=== PATIENT | female | born 1995 | race Caucasian/White ===

== ENCOUNTER 2016-04-19 15:14 | Emergency (ER) | payer OTHER ==
[~2016-04-19] VITALS: Ht 167.6 cm; Wt 63.5 kg
[2016-04-19 15:16] VITALS: TEMP 37; Ht 167.6 cm; Wt 63.5 kg
[2016-04-19] MEDS ORDERED: KETOROLAC TROMETHAMINE 30 MG/ML VIAL IV STA (15:37)
[2016-04-19] MEDS ORDERED: SODIUM CHLORIDE 0.9% 1000ML 1,000 ML IV STA (15:37)
[2016-04-19] MEDS ORDERED: TYLOTC500 PO (15:39)
[2016-04-19 16:04] LABS: HEMATOCRIT 43.3 % (37-47); MEAN CELL VOLUME 87.7 fL (80-100); MEAN CORPUSCULAR HGB CONC 35.3 g/dl (32-36); PLATELET COUNT 132 K/uL (130-400); RED BLOOD COUNT 4.94 M/uL (4.2-5.4); WHITE BLOOD COUNT 11.84 K/uL (4.8-10.8)
[2016-04-19 16:37] LABS: ANTI-STREP O SCR: 5YRS OR > POS IU/ml (<200 IU); ANTI-STREP O TITRE: 5YR OR > 800 IU/ml (<200 IU)
[2016-04-19 16:38] LABS: BASO ABS # 0.11 K/uL (0-0.2); BASOPHIL % 0.9 %; COMPLETE YES; LYMPH ABS # 2.26 K/uL (1.2-3.4); LYMPHOCYTE % 19.1 %; PLASMA CELL 2.6 %; VARIANT LYM ABS # 4.53 K/uL; VARIANT LYMPHOCYTE % 38.3 %
[2016-04-19 16:39] LABS: BUN/CREATININE RATIO 8.4 (10-20); CALCIUM 9.1 mg/dl (8.5-10.1); CREATININE 0.75 mg/dl (0.60-1.20); POTASSIUM 3.6 mmol/L (3.5-5.1)
--- NOTE | 2016-04-19 16:48 | DIAGNOSTIC IMAGING REPORT ---
CHEST 2 VIEWS ROUTINE HISTORY: Cough, upper abd pain COMPARISON: None. FINDINGS: No focal lung consolidations. The heart is normal in size. No pleural effusions. No pneumothorax. There is mild central peribronchial thickening. IMPRESSION: 1. No focal lung consolidations. 2. Mild central peribronchial thickening. This can be seen in the setting of reactive airways disease. Electronically signed by: Capo Sanchez M.D. 04/19/2016 4:46 PM Dictated Date/Time: 04/19/2016 4:44 PM
[2016-04-19] MEDS ORDERED: AMOX500C3 PO (17:27)
[2016-04-19 17:45] VITALS: BP 131/73; PULSE 96; O2SAT 98
--- NOTE | 2016-04-20 00:23 | EMERGENCY ROOM VISIT NOTE ---
History First contact with patient: 15:21 Chief Complaint: FLU LIKE SX Stated Complaint: FLU,BACK PAIN,NECK PAIN History of Present Illness The patient is a 21 year old female who presents to the Emergency Room with complaints of flulike symptoms, neck pain, back pain, fatigue, upper abdominal pain, sore throat, runny nose and congestion. The patient reports that she first got sick 7 days ago. 2 days later, she was seen at her PCPs office and tested positive for influenza. She was treated with Tamiflu, but was only able to keep one tablet down because of nausea. She stopped taking the Tamiflu. As a persistent symptoms, she was seen today at the [facility] urgent care center and was referred here for further workup. She did have a negative rapid strep test. The patient also reports that she had a rash on her face and torso last night. She has had no rash today. She denies any facial swelling, throat/ tongue swelling, shortness of breath or productive cough. The patient reports that she went to [place] last week for the [place]. She went with her father. Her father did have milder symptoms that only lasted a few days. The patient has not taken any medicine today for her aches and pains, and rates her discomfort a 9 out of 10. Review of Systems HEENT: Denies dizziness, visual problems, hearing loss, tinnitus. Denies difficulty swallowing or oral lesions. PULMONARY: Denies shortness of breath, sputum production or hemoptysis. CARDIOVASCULAR: Denies chest pain, palpitations, dyspnea on exertion, orthopnea or peripheral edema. GASTROINTESTINAL: Denies diarrhea, constipation, nausea or vomiting. Otherwise see history of present illness for current upper abdominal pain. GENITOURINARY: Denies dysuria, frequency, urgency or nocturia. NEUROLOGIC: Denies history of epilepsy, CVA, TIA or chronic headaches. MUSCULOSKELETAL: Denies history of joint tenderness/swelling. SKIN: Denies rashes or lesions. PSYCHIATRIC: Denies history of depression or mental illness. ENDOCRINE: Denies history of diabetes or thyroid disorders. Past Medical/Surgical History Medical Problems: (1) No significant past medical history Surgical Problems: (1) No history of previous surgery Family History Unremarkable Social History Smoking Status: Never Smoker Alcohol Use: occasionally Drug Use: none Occupation Status: [employer] student Current/Historical Medications Scheduled Amoxicillin (Amoxil), 500 MG PO TID Scheduled PRN Acetaminophen (Tylenol), 1,000 MG PO Q8 PRN for Pain or Fever Allergies Coded Allergies: Lobster (Verified Allergy, Intermediate, ANAPHYLAXIS, 04/19/16) Physical Exam Vital Signs Date Time Temp Pulse Resp B/P Pulse Ox O2 Delivery O2 Flow Rate FiO2 04/19/16 17:45 96 18 131/73 98 04/19/16 16:58 85 18 121/72 98 Room Air 04/19/16 15:16 37.0 101 18 105/90 95 Room Air Physical Exam CONSTITUTIONAL: Healthy and well nourished. Alert and oriented X 3 with positive affect. Patient does not appear acutely or toxic. HEENT: Normocephalic, atraumatic. Pupils equal, round and reactive. Patient has mild bulging of the TMs without air-fluid levels or purulent effusion. Mild rhinorrhea noted. OROPHARYNX: Mucous membranes are dry. Patient has mild posterior pharyngeal erythema without significant tonsillar hypertrophy or exudates. Erythema does extend across the soft palate. Negative trismus. No evidence for Aguila's angina, retropharyngeal abscess or angioedema. NECK: Full active range of motion without discomfort. No nuchal rigidity. LYMPHATICS: The patient has a few posterior cervical lymph nodes. No anterior cervical adenopathy appreciated. RESPIRATORY: Clear to auscultation bilaterally with no wheezing, crackles, rhonchi or stridor. CARDIOVASCULAR: Regular rate and rhythm with no murmurs, rubs or gallops. GASTROINTESTINAL: Bowel sounds present in all quadrants. Patient has generalized upper abdominal tenderness to palpation. No obvious hepatosplenomegaly. No rigidity, guarding or rebound. Negative CVA tenderness. MUSCULOSKELETAL: Full range of motion of all joints without discomfort. INTEGUMENTARY: No rash or other significant dermatologic conditions noted on today's exam. The mother did show me a picture of the rash that she had yesterday, which appeared as confluent areas of erythema. The appearance is that of a histamine type reaction. Patient reports that the rash was itchy. NEUROLOGIC: No focal neurologic deficits noted. Medical Decision & Procedures ER Provider Diagnostic Interpretation: My interpretation of a two-view chest x-ray does not show any consolidations, pneumothorax or cardiomegaly. Radiologist report is as follows: CHEST 2 VIEWS ROUTINE HISTORY: Cough, upper abd pain COMPARISON: None. FINDINGS: No focal lung consolidations. The heart is normal in size. No pleural effusions. No pneumothorax. There is mild central peribronchial thickening. IMPRESSION: 1. No focal lung consolidations. 2. Mild central peribronchial thickening. This can be seen in the setting of reactive airways disease. Laboratory Results 04/19/16 15:45 Red Blood Count 4.94, Mean Corpuscular Volume 87.7, Mean Corpuscular Hemoglobin 31.0, Mean Corpuscular Hemoglobin Concent 35.3, Mean Platelet Volume 10.0 04/19/16 15:45 Test 04/19/16 15:45 White Blood Count 11.84 K/uL (4.8-10.8) Red Blood Count 4.94 M/uL (4.2-5.4) Hemoglobin 15.3 g/dL (12.0-16.0) Hematocrit 43.3 % (37-47) Mean Corpuscular Volume 87.7 fL (80-100) Mean Corpuscular Hemoglobin 31.0 pg (25-34) Mean Corpuscular Hemoglobin Concent 35.3 g/dl (32-36) Platelet Count 132 K/uL (130-400) Mean Platelet Volume 10.0 fL (7.4-10.4) RDW Standard Deviation 45.1 fL (36.4-46.3) RDW Coefficient of Variation 14.0 % (11.5-14.5) Neutrophils % (Manual) 33.0 % Lymphocytes % (Manual) 19.1 % Variant Lymphocytes % (manual) 38.3 % Monocytes % (Manual) 6.1 % Basophils % (Manual) 0.9 % Neutrophils # (Manual) 3.91 K/uL (1.4-6.5) Total Absolute Neutrophils 3.91 K/uL (1.4-6.5) Lymphocytes # (Manual) 2.26 K/uL (1.2-3.4) Absolute Variant Lymphocytes 4.53 K/uL Total Absolute Lymphocytes 6.80 K/uL (1.2-3.4) Monocytes # (Manual) 0.72 K/uL (0.11-0.59) Basophils # (Manual) 0.11 K/uL (0-0.2) Plasma Cells % 2.6 % Erythrocyte Sedimentation Rate 31 mm/hr (0-21) Anion Gap 9.0 mmol/L (3-11) Est Creatinine Clear Calc Drug Dose 111.9 ml/min Estimated GFR () 133.0 Estimated GFR (Non- 114.7 BUN/Creatinine Ratio 8.4 (10-20) Calcium Level 9.1 mg/dl (8.5-10.1) Monoscreen NEG (NEG) Anti-Streptolysin O Antibody Screen POS IU/ml (<200 IU) Anti-Streptolysin O Antibody Titer 800 IU/ml (<200 IU) The above labs were reviewed. White count is mildly elevated at 11.84 with no left shift or bandemia. Sedimentation rate is 31. Partial renal profile was normal. [place] screen is negative. ASO is positive with a titer of 800. Medications Administered Medications (Trade) Dose Ordered Sig/Alicia Route Start Time Stop Time Status Last Admin Dose Admin Sodium Chloride (Nss 1000ml) 1,000 ml @ 999 mls/hr Q1H1M STAT IV 04/19/16 15:37 04/19/16 16:37 DC 04/19/16 15:50 999 MLS/HR Ketorolac Tromethamine (Toradol Inj) 30 mg NOW STAT IV 04/19/16 15:37 04/19/16 15:39 DC 04/19/16 15:49 30 MG Procedure 1. IV hydration: The patient received a liter normal saline bolus 2. IV medications: Toradol 30 mg IVP ED Course Patient history and physical exam were performed. Nurse's notes were reviewed. Vital signs were reviewed, showing that the patient is afebrile. O2 saturation is 95% on room air. Pulse rate was 101 bpm, and the patient is normotensive. I did suggest performing additional lab work given the patient's duration of symptoms. IV access was established, and labs were drawn. The patient was hydrated with normal saline, and received IV medications as discussed in the previous Procedure section. Review of labs shows a mild leukocytosis without left shift or bandemia. [place] screen is negative. ASO screen is positive with a titer of 800. A two-view chest x-ray does not show any evidence for consolidations or pneumonia. The patient was reassessed and reported feeling better with hydration and IV Toradol. She requested discharge home. At this point, I do feel that treatment with Pen-Vee K antibiotics is warranted given the patient's positive ASO titer. She also has posterior pharyngeal erythema. The patient was encouraged to rest and remain hydrated. I did encourage her to follow-up with [facility] in the next 3-5 days for reevaluation. Return to the emergency department for any significantly worsening symptoms. The patient and mother were happy with plan of care, and the patient denied any significant discomfort at the time of discharge. The case was also discussed with Dr. Flores, ED attending physician, who agrees with workup and plan of care. Medical Decision See previous section. Impression Primary Impression: Strep pharyngitis Additional Impression: Influenza Departure Information Prescriptions Amoxicillin (AMOXIL) 500 Mg Cap 500 MG PO TID for 10 Days, #30 CAP Prov: Johnny Manriquez PA 04/19/16 Referrals No Doctor, Assigned (PCP) Patient Instructions A Signature Page, My [facility] Problem Qualifiers
== END 2016-04-19 17:47 | disposition home or self-care (01) ==
LOC: C.EDB 15:15 → C.EDC 17:47
DX: J02.0 Streptococcal pharyngitis (principal)

== ENCOUNTER 2017-01-20 14:39 | Emergency (ER) | payer OTHER ==
[~2017-01-20] VITALS: Ht 165.1 cm; Wt 69.1 kg
[2017-01-20 14:46] VITALS: TEMP 37.1; Ht 165.1 cm; Wt 69.1 kg
--- NOTE | 2017-01-20 15:11 | EMERGENCY ROOM VISIT NOTE ---
History First contact with patient: 14:53 Chief Complaint: PELVIC PAIN Stated Complaint: PELVIC PAIN History of Present Illness The patient is a 21 year old female who presents to the Emergency Room with complaints of right lower quadrant abdominal pain intermittently over the last month. The patient had intercourse earlier today. She is sexually active with one partner. Immediately following intercourse, the pain became severe. She called her [facility]OMER PROFESSION[facility] doctor at home. She was advised to come to the emergency department for evaluation. The patient reports minimal vaginal bleeding. She denies any vaginal dryness. No reported fever or chills. She denies any discharge or foul odor. She denies any vomiting or diarrhea. Review of Systems 10 system review performed and negative unless noted in HPI or below Past Medical/Surgical History Medical Problems: (1) No significant past medical history Surgical Problems: (1) No history of previous surgery Family History History of diabetes Social History Smoking Status: Never Smoker Alcohol Use: occasionally Drug Use: none Occupation Status: [employer] student Current/Historical Medications Scheduled Ascorbic Acid (Vitamin C), 500 MG PO DAILY Control Pills ( Control Pills), 1 TAB PO DAILY Scheduled PRN Acetaminophen (Tylenol), 1,000 MG PO Q8 PRN for Pain or Fever Physical Exam Vital Signs Date Time Temp Pulse Resp B/P (MAP) Pulse Ox O2 Delivery O2 Flow Rate FiO2 01/20/17 17:12 66 18 111/64 99 Room Air 01/20/17 14:46 37.1 66 18 126/77 95 Room Air Physical Exam VITALS: Vitals are noted on the nurse's note and reviewed by myself. Vital signs stable. GENERAL: 21-year-old female, in no acute distress, nondiaphoretic, well- developed well-nourished. SKIN: The skin was without rashes, erythema, edema, or bruising. HEAD: Normocephalic atraumatic. MOUTH: Mucous membranes moist. Tonsils are not enlarged. Pharynx without erythema or exudate. Uvula midline. Airway patent. Tongue does not deviate. NECK: . No lymphadenopathy. Cervical spine is nontender. No JVD. HEART: Regular rate and rhythm without murmurs gallops or rubs. LUNGS: Clear to auscultation bilaterally without wheezes, rales or rhonchi. No accessory muscle use. ABDOMEN: Positive bowel sounds x 4.Soft, tenderness to palpation in the right lower quadrant, without organomegaly. No guarding or rebound tenderness. : External genitalia free of any lesions or masses. Speculum exam reveals a moderate amount of cream-colored discharge in the vaginal vault. The cervix is pink. No lesions are noted on the cervix. The os is closed. Bimanual exam reveals no cervical motion tenderness. No adnexal masses palpated. MUSCULOSKELETAL: No muscle atrophy, erythema, or edema noted. Strength 5/5 throughout. NEURO: Patient was alert and oriented to person place and time. Normal sensation to touch. No focal neurological deficits. Medical Decision & Procedures ER Provider Diagnostic Interpretation: vaginal US IMPRESSION: 1. There is a 3.6 cm cyst as well as a dominant follicle identified in the right ovary. There is no sonographic evidence of ovarian torsion at the time of examination. 2. A small volume of free fluid in the cul-de-sac is likely within physiologic limits. IMPRESSION: 1. There is a 3.6 cm cyst as well as a dominant follicle identified in the right ovary. There is no sonographic evidence of ovarian torsion at the time of examination. 2. A small volume of free fluid in the cul-de-sac is likely within physiologic limits. Laboratory Results 01/20/17 16:21 Red Blood Count 4.68, Mean Corpuscular Volume 89.3, Mean Corpuscular Hemoglobin 31.6, Mean Corpuscular Hemoglobin Concent 35.4, Mean Platelet Volume 9.3, Neutrophils (%) (Auto) 70.9, Lymphocytes (%) (Auto) 20.8, Monocytes (%) (Auto) 7.2, Eosinophils (%) (Auto) 0.7, Basophils (%) (Auto) 0.2, Neutrophils # (Auto) 5.74, Lymphocytes # (Auto) 1.69, Monocytes # (Auto) 0.58, Eosinophils # (Auto) 0.06, Basophils # (Auto) 0.02 01/20/17 16:21 Test 01/20/17 15:24 01/20/17 16:21 01/20/17 18:00 Urine Color YELLOW Urine Appearance CLEAR (CLEAR) Urine pH >= 9.0 (4.5-7.5) Urine Specific [place] 1.018 (1.000-1.030) Urine Protein TRACE (NEG) Urine Glucose (UA) NEG (NEG) Urine Ketones NEG (NEG) Urine Occult Blood NEG (NEG) Urine Nitrite NEG (NEG) Urine Bilirubin NEG (NEG) Urine Urobilinogen NEG (NEG) Urine Leukocyte Esterase SMALL (NEG) Urine WBC (Auto) 10-30 /hpf (0-5) Urine RBC (Auto) 0-4 /hpf (0-4) Urine Hyaline Casts (Auto) 1-5 /lpf (0-5) Urine Epithelial Cells (Auto) >30 /lpf (0-5) Urine Bacteria (Auto) 2+ (NEG) White Blood Count 8.11 K/uL (4.8-10.8) Red Blood Count 4.68 M/uL (4.2-5.4) Hemoglobin 14.8 g/dL (12.0-16.0) Hematocrit 41.8 % (37-47) Mean Corpuscular Volume 89.3 fL (80-100) Mean Corpuscular Hemoglobin 31.6 pg (25-34) Mean Corpuscular Hemoglobin Concent 35.4 g/dl (32-36) Platelet Count 229 K/uL (130-400) Mean Platelet Volume 9.3 fL (7.4-10.4) Neutrophils (%) (Auto) 70.9 % Lymphocytes (%) (Auto) 20.8 % Monocytes (%) (Auto) 7.2 % Eosinophils (%) (Auto) 0.7 % Basophils (%) (Auto) 0.2 % Neutrophils # (Auto) 5.74 K/uL (1.4-6.5) Lymphocytes # (Auto) 1.69 K/uL (1.2-3.4) Monocytes # (Auto) 0.58 K/uL (0.11-0.59) Eosinophils # (Auto) 0.06 K/uL (0-0.5) Basophils # (Auto) 0.02 K/uL (0-0.2) RDW Standard Deviation 42.4 fL (36.4-46.3) RDW Coefficient of Variation 13.0 % (11.5-14.5) Immature Granulocyte % (Auto) 0.2 % Immature Granulocyte # (Auto) 0.02 K/uL (0.00-0.02) Anion Gap 7.0 mmol/L (3-11) Est Creatinine Clear Calc Drug Dose 100.7 ml/min Estimated GFR () 111.1 Estimated GFR (Non- 95.9 BUN/Creatinine Ratio 11.5 (10-20) Calcium Level 8.7 mg/dl (8.5-10.1) Total Bilirubin 0.5 mg/dl (0.2-1) Aspartate Amino Transf (AST/SGOT) 17 U/L (15-37) Alanine Aminotransferase (ALT/SGPT) 16 U/L (12-78) Alkaline Phosphatase 70 U/L (45-117) Total Protein 6.9 gm/dl (6.4-8.2) Albumin 3.4 gm/dl (3.4-5.0) Globulin 3.5 gm/dl (2.5-4.0) Albumin/Globulin Ratio 1.0 (0.9-2) Lipase 191 U/L (73-393) Human Chorionic Gonadotropin, Qual NEG (NEG) ED Course Patient was seen and examined Vital signs including blood pressure were reviewed medications list was verified with patient Labs were obtained, and a saline lock was established The patient declined pain medication. I reviewed discharge instructions the patient. They voiced understanding and had no further questions. Medical Decision Differential diagnosis: Ovarian cysts, ovarian torsion, appendicitis, PID, kidney stone, diverticulitis This patient is a 21-year-old female that presents to emergency department with right lower abdominal pain for approximately 1 month. Exacerbating factors include intercourse. Ovarian cyst was fairly high on my list; therefore, I ordered a pelvic ultrasound. This is consistent with a 3.6 cm right-sided ovarian cyst. No signs of torsion noted. Vaginal exam did reveal a moderate amount of discharge. I opted to treat the patient with Rocephin and azithromycin. Her urinalysis is also consistent with the UTI. She was put on a course of Macrobid. The patient was given pelvic rest. She was instructed to call the [facility] on Monday morning for a follow-up appointment. She will return here with any new or worsening symptoms This chart was completed in part utilizing [employer] Speech Voice Recognition software. Attempts were made to minimize the grammatical errors, random word insertions, pronoun errors and incomplete sentences. Any formal questions or concerns about the content, text or information contained within the body of this dictation should be directly addressed to the provider for clarification. Medication Reconcilliation Current Medication List: was personally reviewed by me Blood Pressure Screening Patient's blood pressure: Normal blood pressure Impression Primary Impression: Ovarian cyst Additional Impression: UTI (urinary tract infection) Departure Information Dispostion Home / Self-Care Condition GOOD Prescriptions Nitrofurantoin Monohyd Macrocr (Macrobid) 100 Mg Cap 100 MG PO BID for 7 Days, #14 CAP Prov: Ashli Mccord PA-C 01/20/17 Referrals No Doctor, Assigned (PCP) Ashli Pennington M.D. Patient Instructions Cyst Ovarian About, My [facility] Additional Instructions You were evaluated in the emergency department with right-sided abdominal pain. This is likely stemming from a right-sided ovarian cyst. Please follow-up with [facility] as soon as possible. Call Monday morning for a follow-up appointment. Pelvic rest: Nothing in the vagina, no sexual activity, no tampons, etc.... Please finish the entire course of antibiotics. Please eat yogurt or take a probiotic daily while on this medication. Ibuprofen 800 mg and/or Tylenol 1000 mg every 8 hours for pain. You may also alternate these medications for more effective pain relief: Ibuprofen --4 HRS--> Tylenol --4 HRS--> ibuprofen --4 HRS--> Tylenol .... Please return to the emergency department with any new or worsening symptoms. Problem Qualifiers
[2017-01-20] MEDS ORDERED: BCPILLS PO (15:18)
[2017-01-20] MEDS ORDERED: ASCO500T3 PO (15:18)
[2017-01-20 15:35] LABS: URINE APPEARANCE CLEAR (CLEAR); URINE BILIRUBIN NEG (NEG); URINE COLOR YELLOW; URINE EPITHELIAL CELL AUTO >30 /lpf (0-5); URINE NITRITE NEG (NEG); URINE PH >= 9.0 (4.5-7.5); URINE SPECIFIC GRAVITY 1.018 (1.000-1.030); UROBILINOGEN NEG (NEG)
[2017-01-20 15:38] LABS: MANUAL MICROSCOPIC REQUIRED? NO; REVIEW REQ? NO
[2017-01-20 15:39] LABS: SULFASALICYLIC ACID POS (NEG)
[2017-01-20] MEDS ORDERED: TYLOTC500 PO (15:39)
[2017-01-20 16:32] LABS: BASO % 0.2 %; BASO ABS # 0.02 K/uL (0-0.2); COMPLETE YES; EOS % 0.7 %; HEMATOCRIT 41.8 % (37-47); IG% 0.2 %; LYMPH % 20.8 %; LYMPH ABS # 1.69 K/uL (1.2-3.4); MEAN CELL VOLUME 89.3 fL (80-100); MEAN CORPUSCULAR HEMOGLOBIN 31.6 pg (25-34); MEAN CORPUSCULAR HGB CONC 35.4 g/dl (32-36); MEAN PLATELET VOLUME 9.3 fL (7.4-10.4); MONO % 7.2 %; NEUT % 70.9 %; PLATELET COUNT 229 K/uL (130-400); RED BLOOD COUNT 4.68 M/uL (4.2-5.4); WHITE BLOOD COUNT 8.11 K/uL (4.8-10.8)
[2017-01-20 16:50] LABS: BUN/CREATININE RATIO 11.5 (10-20); CALCIUM 8.7 mg/dl (8.5-10.1); CREATININE 0.87 mg/dl (0.60-1.20); POTASSIUM 3.9 mmol/L (3.5-5.1)
[2017-01-20 16:55] LABS: PREG INTERNAL NEGATIVE QC NEG CLEAR BACKGROUND; PREG INTERNAL POSITIVE QC POS CONTROL LINE
--- NOTE | 2017-01-20 17:24 | DIAGNOSTIC IMAGING REPORT ---
ULTRASOUND OF THE PELVIS CLINICAL HISTORY: Right pelvic pain with intercourse. COMPARISON STUDY: No priors. TECHNIQUE: Real-time, grayscale, and color flow sonography of the pelvis is performed both transabdominally and endovaginally. Images are reviewed in the transverse and longitudinal planes. FINDINGS: Uterus: The uterus is normal in size and echotexture, measuring 7.2 x 3.1 x 4.3 cm. Endometrium: The endometrium is normal in appearance, and the endometrial stripe is normal in thickness measuring up to 0.5 cm. Ovaries: The ovaries are normal in size and morphology. The right ovary measures 5.2 x 3.1 x 3.5 cm and the left ovary measures 2.7 x 1.8 x 1.9 cm. There is a small and simple appearing right ovarian cyst measuring 3.6 cm. An additional dominant follicle in the right ovary measures 3.1 cm. Additional follicles are noted in the left ovary. Normal Doppler waveforms are shown within both ovaries. Pelvis: There is the small volume of free fluid in the cul-de-sac. No concerning adnexal lesion is seen. IMPRESSION: 1. There is a 3.6 cm cyst as well as a dominant follicle identified in the right ovary. There is no sonographic evidence of ovarian torsion at the time of examination. 2. A small volume of free fluid in the cul-de-sac is likely within physiologic limits. Electronically signed by: Michele Najera M.D. 01/20/2017 5:22 PM Dictated Date/Time: 01/20/2017 5:20 PM
[2017-01-20] MEDS ORDERED: NITR-5 PO (18:05)
[2017-01-20] MEDS ORDERED: CEFTRIAXONE SOD INJ 250 MG/ML VIAL IM ONE (18:15)
[2017-01-20] MEDS ORDERED: AZITHROMYCIN 250 MG TAB PO ONE (18:15)
[2017-01-20] MEDS: CEFTRIAXONE SOD INJ 250 MG in SYRINGE 0 ML IM SCH ×2 (18:45→18:46)
[2017-01-20 18:59] VITALS: BP 118/69; PULSE 75; O2SAT 98
--- NOTE | 2017-01-23 15:09 | Pharmacy Progress Note ---
ED Pharmacist Culture FollowUp Date of Service: Jan 23, 2017. Called patient regarding genital culture with Group B Strep and Haemophilus influenzae. Informed of positive result. Counseled that the bacteria isolated may be normal genital danielle, but that it may also represent infection. Counseled that antibiotics are not urgently required (as patient reported improvement in her condition) but that she should follow-up with outpatient OB/ [facility]. Patient acknowledged understanding. Case discussed with Dr. Johnson.
== END 2017-01-20 19:04 | disposition home or self-care (01) ==
LOC: C.EDB 14:41
DX: N83.201 Unspecified ovarian cyst, right side (principal); N39.0 Urinary tract infection, site not specified; Z79.3 Long term (current) use of hormonal contraceptives

== ENCOUNTER 2017-05-09 15:19 | Emergency (ER) | payer OTHER ==
[~2017-05-09] VITALS: Ht 165.1 cm; Wt 66.2 kg
[~2017-05-09 15:19] MED LIST: ASCO500T3 PO; BCPILLS PO; TYLOTC500 PO
[2017-05-09 15:36] VITALS: TEMP 36.8; Ht 165.1 cm; Wt 66.2 kg
--- NOTE | 2017-05-09 16:19 | EMERGENCY ROOM VISIT NOTE ---
History Report prepared by Marysol: Demian Shah Under the Supervision of: Dr. Michele Flores M.D. First contact with patient: 15:47 Chief Complaint: ABDOMINAL PAIN Stated Complaint: SEVERE ABD PAIN Nursing Triage Summary: Patient reports developing medial upper abdominal pain last night around 2200. The pain lasted about 1 hour and then dissipated. This morning, after waking, the patient noted that the pain came back. She has been having intermittent episodes of that pain throughout the day today. Patient reports that the pain is a burning cramp or a stabbing pain. Patient admits to nausea and decreased appetite today. History of Present Illness The patient is a 22 year old female who presents to the Emergency Room with complaints of intermittent epigastrium abdominal pain that began last night. She rates her pain a 2/10 in severity. At that time, the patient experienced a sudden onset stabbing/burning pain. She took Advil when the pain began which resolved it 1 hour later. However, this then occurred three other times this morning each lasting about 5 minutes. She presented to [facility] who then sent her to the Emergency Room for further work up and evaluation. She is currently nauseated but denies any vomiting. This has never happened to her before. She denies any fevers, chills, hematochezia, melena, abnormal urinary symptoms, abnormal vaginal bleeding, or vaginal discharge. She notes that she has a past medical history of suspected endometriosis and states that her pain feels different than her pain associated with that disorder. She is due to have a Laparoscopy in May. She denies any other past medical history. Source of History: patient Onset: last night Position: abdomen (epigastrium) Symptom Intensity: 2/10 Quality: burning, stabbing Timing: intermittent Associated Symptoms: + nausea, No fevers, No chills, No vomiting, No melena , No hematochezia, No diarrhea, No urinary symptoms Note: She denies any abnormal vaginal bleeding or discharge. Review of Systems See HPI for pertinent positives & negatives. A total of 10 systems reviewed and were otherwise negative. Past Medical & Surgical Medical Problems: (1) No significant past medical history Surgical Problems: (1) No history of previous surgery Family History Patient reports no known family medical history. Social History Smoking Status: Never Smoker Smokeless Tobacco Use: No Alcohol Use: occasionally Drug Use: none Occupation Status: [employer] student Current/Historical Medications Scheduled Control Pills ( Control Pills), 1 TAB PO DAILY Allergies Coded Allergies: Amoxicillin (Verified Allergy, Intermediate, Rash/Hives, 05/09/17) Lobster (Verified Allergy, Intermediate, ANAPHYLAXIS, 05/09/17) Miconazole (Unverified Allergy, Unknown, INFLAMMATION, 05/09/17) Physical Exam Vital Signs Date Time Temp Pulse Resp B/P (MAP) Pulse Ox O2 Delivery O2 Flow Rate FiO2 05/09/17 17:30 78 18 125/84 98 Room Air 05/09/17 15:36 36.8 80 20 129/65 99 Room Air Physical Exam GENERAL: Patient is in no acute distress. HEENT: No acute trauma, normocephalic atraumatic, mucous membranes moist, no nasal congestion, no scleral icterus. NECK: No stridor, no adenopathy, no meningismus, trachea is midline. LUNGS: Clear to auscultation bilaterally, no wheeze, no rhonchi, breath sounds equal. HEART: Without murmurs gallops or rubs, regular rate and rhythm. ABDOMEN: Soft, moderately tender to the epigastrium and RUQ, bowel sounds positive, no hernias, no peritonitis. EXTREMITIES: No cyanosis or edema, full range of motion of all the joints without pain or difficulty, no signs for acute trauma. NEUROLOGIC: Oriented x 3, no acute motor or sensory deficits, no focal weakness. SKIN: No rash, no jaundice, no diaphoresis. Medical Decision & Procedures ER Provider Diagnostic Interpretation: Radiology results as stated below per my review and radiologist interpretation: ABDOMEN 2VIEW W/PA CHEST RTN CLINICAL HISTORY: Abdominal pain, nausea, vomiting. COMPARISON STUDY: Chest x-ray dated 04/19/2016 FINDINGS: The erect chest reveals no evidence of free air. There is no evidence of focal pulmonary consolidation.] Erect and supine views of the abdomen reveal no abnormally dilated loops of large or small bowel. There are no transition zone to indicate bowel obstruction. IMPRESSION: No evidence of bowel obstruction. No evidence of free air. Electronically signed by: Erasmo Romo M.D. 05/09/2017 5:20 PM Dictated Date/Time: 05/09/2017 5:19 PM Gallbladder ultrasound: IMPRESSION: Unremarkable sonographic assessment of the right upper quadrant. No gallstones are identified Laboratory Results 05/09/17 15:54 Red Blood Count 4.66, Mean Corpuscular Volume 91.4, Mean Corpuscular Hemoglobin 31.3, Mean Corpuscular Hemoglobin Concent 34.3, Mean Platelet Volume 9.6, Neutrophils (%) (Auto) 63.7, Lymphocytes (%) (Auto) 27.7, Monocytes (%) (Auto) 7.0, Eosinophils (%) (Auto) 1.0, Basophils (%) (Auto) 0.3, Neutrophils # (Auto) 4.44, Lymphocytes # (Auto) 1.93, Monocytes # (Auto) 0.49, Eosinophils # (Auto) 0.07, Basophils # (Auto) 0.02 05/09/17 15:54 Test 05/09/17 15:50 05/09/17 15:54 Urine Color YELLOW Urine Appearance TURBID (CLEAR) Urine pH 8.0 (4.5-7.5) Urine Specific [place] 1.019 (1.000-1.030) Urine Protein NEG (NEG) Urine Glucose (UA) NEG (NEG) Urine Ketones NEG (NEG) Urine Occult Blood NEG (NEG) Urine Nitrite NEG (NEG) Urine Bilirubin NEG (NEG) Urine Urobilinogen NEG (NEG) Urine Leukocyte Esterase TRACE (NEG) Urine WBC (Auto) 1-5 /hpf (0-5) Urine RBC (Auto) 0-4 /hpf (0-4) Urine Hyaline Casts (Auto) 1-5 /lpf (0-5) Urine Epithelial Cells (Auto) >30 /lpf (0-5) Urine Bacteria (Auto) 1+ (NEG) Urine Test NEG (NEG) White Blood Count 6.97 K/uL (4.8-10.8) Red Blood Count 4.66 M/uL (4.2-5.4) Hemoglobin 14.6 g/dL (12.0-16.0) Hematocrit 42.6 % (37-47) Mean Corpuscular Volume 91.4 fL (80-100) Mean Corpuscular Hemoglobin 31.3 pg (25-34) Mean Corpuscular Hemoglobin Concent 34.3 g/dl (32-36) Platelet Count 279 K/uL (130-400) Mean Platelet Volume 9.6 fL (7.4-10.4) Neutrophils (%) (Auto) 63.7 % Lymphocytes (%) (Auto) 27.7 % Monocytes (%) (Auto) 7.0 % Eosinophils (%) (Auto) 1.0 % Basophils (%) (Auto) 0.3 % Neutrophils # (Auto) 4.44 K/uL (1.4-6.5) Lymphocytes # (Auto) 1.93 K/uL (1.2-3.4) Monocytes # (Auto) 0.49 K/uL (0.11-0.59) Eosinophils # (Auto) 0.07 K/uL (0-0.5) Basophils # (Auto) 0.02 K/uL (0-0.2) RDW Standard Deviation 44.4 fL (36.4-46.3) RDW Coefficient of Variation 13.6 % (11.5-14.5) Immature Granulocyte % (Auto) 0.3 % Immature Granulocyte # (Auto) 0.02 K/uL (0.00-0.02) Anion Gap 8.0 mmol/L (3-11) Est Creatinine Clear Calc Drug Dose 80.9 ml/min Estimated GFR () 94.4 Estimated GFR (Non- 81.5 BUN/Creatinine Ratio 12.6 (10-20) Calcium Level 8.9 mg/dl (8.5-10.1) Total Bilirubin 0.5 mg/dl (0.2-1) Aspartate Amino Transf (AST/SGOT) 24 U/L (15-37) Alanine Aminotransferase (ALT/SGPT) 19 U/L (12-78) Alkaline Phosphatase 62 U/L (45-117) Total Protein 7.3 gm/dl (6.4-8.2) Albumin 3.6 gm/dl (3.4-5.0) Globulin 3.7 gm/dl (2.5-4.0) Albumin/Globulin Ratio 1.0 (0.9-2) Lipase 227 U/L (73-393) Laboratory results reviewed by me. Medications Administered Medications (Trade) Dose Ordered Sig/Alicia Route Start Time Stop Time Status Last Admin Dose Admin Miscellaneous Medication (Gi Cocktail) 24 ml NOW ONCE PO 05/09/17 16:30 05/09/17 16:31 DC 05/09/17 16:40 24 ML Al Hydroxide/Mg Hydroxide (Maalox Susp) 30 ml STK-MED ONCE .ROUTE 05/09/17 16:37 05/09/17 16:38 DC 05/09/17 16:39 30 ML Lidocaine HCl (Viscous Lidocaine 2% Soln) 20 ml STK-MED ONCE .ROUTE 05/09/17 16:37 05/09/17 16:38 DC 05/09/17 16:40 20 ML ED Course 1547: The patient was evaluated in room B8. A complete history and physical exam was performed. 1630: Ordered Gi Cocktail 24 ml PO Medical Decision Differential diagnosis includes but is not limited to reflux, gastritis, ulcer, pancreatitis, biliary colic, constipation, bowel perforation, and musculoskeletal pain. There is no leukocytosis or concerning anemia. No significant electrolyte abnormality or kidney failure. There is no hepatitis or pancreatitis. Urinalysis does not show infection or significant hematuria. testing is negative. Obstruction series does show some stool in the colon, no bowel obstruction, free air or pneumonia. Gallbladder ultrasound was unremarkable. On exam, the patient was not toxic or febrile. There was no peritonitis. The patient received a GI cocktail, she is resting comfortably. The patient presents with epigastric abdominal pain. Her workup here is benign and reassuring. Given the excessive stool in the colon, I do think starting her on some Senokot would be reasonable, the constipation may be part of her discomfort. Reflux or gastritis is also a possibility so starting antacids is reasonable. The patient will be discharged with outpatient follow-up and possibly a GI referral if symptoms are persisting. Certainly, if things are worsening, she can return for reassessment. At this point, no findings suggest appendicitis. Medication Reconcilliation Current Medication List: was personally reviewed by me Blood Pressure Screening Patient's blood pressure: Normal blood pressure Blood pressure disposition: Did not require urgent referral Impression Primary Impression: Epigastric abdominal pain Scribe Attestation The scribe's documentation has been prepared under my direction and personally reviewed by me in its entirety. I confirm that the note above accurately reflects all work, treatment, procedures, and medical decision making performed by me. Departure Information Dispostion Home / Self-Care Referrals No Doctor, Assigned (PCP) Patient Instructions My [facility]
[2017-05-09] MEDS ORDERED: GI COCKTAIL PO ONE (16:30)
[2017-05-09] MEDS ORDERED: ALUMINUM/MAGNESIUM SUSP 30 ML UDC ONE (16:37)
[2017-05-09] MEDS ORDERED: LIDOCAINE HCL 2% VISC SOLN 20 ML UDC ONE (16:37)
[2017-05-09 16:42] LABS: BASO % 0.3 %; BASO ABS # 0.02 K/uL (0-0.2); EOS ABS # 0.07 K/uL (0-0.5); HEMATOCRIT 42.6 % (37-47); HEMOGLOBIN 14.6 g/dL (12.0-16.0); IG# 0.02 K/uL (0.00-0.02); LYMPH % 27.7 %; LYMPH ABS # 1.93 K/uL (1.2-3.4); MEAN CELL VOLUME 91.4 fL (80-100); MEAN CORPUSCULAR HEMOGLOBIN 31.3 pg (25-34); MEAN CORPUSCULAR HGB CONC 34.3 g/dl (32-36); MEAN PLATELET VOLUME 9.6 fL (7.4-10.4); MONO ABS # 0.49 K/uL (0.11-0.59); NEUT % 63.7 %; NEUT ABS # 4.44 K/uL (1.4-6.5); PLATELET COUNT 279 K/uL (130-400); RED CELL DISTRIBUTION WIDTH CV 13.6 % (11.5-14.5); RED CELL DISTRIBUTION WIDTH SD 44.4 fL (36.4-46.3); WHITE BLOOD COUNT 6.97 K/uL (4.8-10.8)
--- NOTE | 2017-05-09 16:45 | EMERGENCY ROOM VISIT NOTE ---
History First contact with patient: 15:49 Chief Complaint: ABDOMINAL PAIN Stated Complaint: SEVERE ABD PAIN Nursing Triage Summary: Patient reports developing medial upper abdominal pain last night around 2200. The pain lasted about 1 hour and then dissipated. This morning, after waking, the patient noted that the pain came back. She has been having intermittent episodes of that pain throughout the day today. Patient reports that the pain is a burning cramp or a stabbing pain. Patient admits to nausea and decreased appetite today. History of Present Illness The patient is a 22 year old female who presents to the Emergency Room with complaints of epigastric pain. Pain started last night around 10 pm. Pain was described as stabbing/burning quality, 9/10 intensity, lasting approximately 1 hr. She tool Advil overnight and pain eventually resolved. Pain recurred 3 times as of this morning typically lasting around 5 minutes. She also reports, associated nausea. She reports no aggravating factors, no meal association. She denies fevers, chills, diarrhea, constipation, blood in stool, urinary symptom. She went to [facility] today and was told to go to Emergency dept for further evaluation. Patient denies any previous similar pain. She does have a history of suspected endometriosis and is scheduled for Laporoscopy on May 19 to confirm. She reportedly distinguishes between her typical LLQ pain endometriosis pain from current symptoms. Her LMP was 2 wks ago. NO vaginal discharge, some vaginal spotting in between periods which is typical for her. No h/o STI's. No Surgical history Review of Systems Pt denies headache, change in vision, fevers, chest pain, shortness of breath, vomiting, diarrhea, pain with urination, and melena. Past Medical/Surgical History Medical Problems: (1) No significant past medical history Surgical Problems: (1) No history of previous surgery Family History Patient reports no known family medical history. Social History Smoking Status: Never Smoker Smokeless Tobacco Use: No Alcohol Use: occasionally Drug Use: none Occupation Status: [employer] student Current/Historical Medications Scheduled Control Pills ( Control Pills), 1 TAB PO DAILY Omeprazole (Prilosec), 20 MG PO DAILY Ranitidine (Zantac), 150 MG PO BID Sennosides-Docusate Sodium (Senokot S), 1 TAB PO BID Physical Exam Vital Signs Date Time Temp Pulse Resp B/P (MAP) Pulse Ox O2 Delivery O2 Flow Rate FiO2 05/09/17 18:35 80 18 108/68 100 Room Air 05/09/17 17:30 78 18 125/84 98 Room Air 05/09/17 15:36 36.8 80 20 129/65 99 Room Air Physical Exam GENERAL: alert, no distress, non-toxic EYE EXAM: normal conjunctiva, PERRL and EOM's grossly intact OROPHARYNX: no exudate, no erythema, lips, buccal mucosa, and tongue normal and mucous membranes are moist NECK: supple, no nuchal rigidity, no adenopathy, non-tender LUNGS: Clear to auscultation. Normal chest wall mechanics HEART: no murmurs, S1 normal and S2 normal ABDOMEN: soft,Tenderness to palpation, epigastrium, normo-active bowel sounds, no masses, no rebound or guarding. NEURO EXAM: Normal sensorium, cranial nerves II-XII grossly intact, normal speech Medical Decision & Procedures ER Provider Diagnostic Interpretation: ABDOMEN 2VIEW W/PA CHEST RTN CLINICAL HISTORY: Abdominal pain, nausea, vomiting. COMPARISON STUDY: Chest x-ray dated 04/19/2016 FINDINGS: The erect chest reveals no evidence of free air. There is no evidence of focal pulmonary consolidation.] Erect and supine views of the abdomen reveal no abnormally dilated loops of large or small bowel. There are no transition zone to indicate bowel obstruction. IMPRESSION: No evidence of bowel obstruction. No evidence of free air. ULTRASOUND RIGHT UPPER QUADRANT ABDOMEN CLINICAL HISTORY: Epigastric and right upper quadrant abdominal pain. COMPARISON STUDY: Abdominal radiographs dated 05/09/2017. TECHNIQUE: Real-time, grayscale, and color flow sonography of the right upper quadrant of the abdomen was performed. Images are reviewed in the transverse and longitudinal planes. FINDINGS: Liver: The liver is normal in size and echotexture. There is no intrahepatic biliary ductal dilatation. The main portal vein is patent. Gallbladder: The gallbladder is contracted and otherwise normal in appearance. No gallstones are identified. There is no gallbladder wall thickening or pericholecystic fluid. A sonographic Cote's sign is reportedly absent. The common bile duct measures up to 0.5 cm in diameter. Pancreas: Visualized portions of the pancreatic head and body are normal in appearance. The splenic vein is patent. Right kidney: Survey images of the right kidney demonstrate normal size and echotexture. There is no hydronephrosis. Ascites: None. IMPRESSION: Unremarkable sonographic assessment of the right upper quadrant. No gallstones are identified. Laboratory Results 05/09/17 15:54 Red Blood Count 4.66, Mean Corpuscular Volume 91.4, Mean Corpuscular Hemoglobin 31.3, Mean Corpuscular Hemoglobin Concent 34.3, Mean Platelet Volume 9.6, Neutrophils (%) (Auto) 63.7, Lymphocytes (%) (Auto) 27.7, Monocytes (%) (Auto) 7.0, Eosinophils (%) (Auto) 1.0, Basophils (%) (Auto) 0.3, Neutrophils # (Auto) 4.44, Lymphocytes # (Auto) 1.93, Monocytes # (Auto) 0.49, Eosinophils # (Auto) 0.07, Basophils # (Auto) 0.02 05/09/17 15:54 Test 05/09/17 15:50 05/09/17 15:54 Urine Color YELLOW Urine Appearance TURBID (CLEAR) Urine pH 8.0 (4.5-7.5) Urine Specific [place] 1.019 (1.000-1.030) Urine Protein NEG (NEG) Urine Glucose (UA) NEG (NEG) Urine Ketones NEG (NEG) Urine Occult Blood NEG (NEG) Urine Nitrite NEG (NEG) Urine Bilirubin NEG (NEG) Urine Urobilinogen NEG (NEG) Urine Leukocyte Esterase TRACE (NEG) Urine WBC (Auto) 1-5 /hpf (0-5) Urine RBC (Auto) 0-4 /hpf (0-4) Urine Hyaline Casts (Auto) 1-5 /lpf (0-5) Urine Epithelial Cells (Auto) >30 /lpf (0-5) Urine Bacteria (Auto) 1+ (NEG) Urine Test NEG (NEG) White Blood Count 6.97 K/uL (4.8-10.8) Red Blood Count 4.66 M/uL (4.2-5.4) Hemoglobin 14.6 g/dL (12.0-16.0) Hematocrit 42.6 % (37-47) Mean Corpuscular Volume 91.4 fL (80-100) Mean Corpuscular Hemoglobin 31.3 pg (25-34) Mean Corpuscular Hemoglobin Concent 34.3 g/dl (32-36) Platelet Count 279 K/uL (130-400) Mean Platelet Volume 9.6 fL (7.4-10.4) Neutrophils (%) (Auto) 63.7 % Lymphocytes (%) (Auto) 27.7 % Monocytes (%) (Auto) 7.0 % Eosinophils (%) (Auto) 1.0 % Basophils (%) (Auto) 0.3 % Neutrophils # (Auto) 4.44 K/uL (1.4-6.5) Lymphocytes # (Auto) 1.93 K/uL (1.2-3.4) Monocytes # (Auto) 0.49 K/uL (0.11-0.59) Eosinophils # (Auto) 0.07 K/uL (0-0.5) Basophils # (Auto) 0.02 K/uL (0-0.2) RDW Standard Deviation 44.4 fL (36.4-46.3) RDW Coefficient of Variation 13.6 % (11.5-14.5) Immature Granulocyte % (Auto) 0.3 % Immature Granulocyte # (Auto) 0.02 K/uL (0.00-0.02) Anion Gap 8.0 mmol/L (3-11) Est Creatinine Clear Calc Drug Dose 80.9 ml/min Estimated GFR () 94.4 Estimated GFR (Non- 81.5 BUN/Creatinine Ratio 12.6 (10-20) Calcium Level 8.9 mg/dl (8.5-10.1) Total Bilirubin 0.5 mg/dl (0.2-1) Aspartate Amino Transf (AST/SGOT) 24 U/L (15-37) Alanine Aminotransferase (ALT/SGPT) 19 U/L (12-78) Alkaline Phosphatase 62 U/L (45-117) Total Protein 7.3 gm/dl (6.4-8.2) Albumin 3.6 gm/dl (3.4-5.0) Globulin 3.7 gm/dl (2.5-4.0) Albumin/Globulin Ratio 1.0 (0.9-2) Lipase 227 U/L (73-393) Medications Administered Medications (Trade) Dose Ordered Sig/Alicia Route Start Time Stop Time Status Last Admin Dose Admin Miscellaneous Medication (Gi Cocktail) 24 ml NOW ONCE PO 05/09/17 16:30 05/09/17 16:31 DC 05/09/17 16:40 24 ML Al Hydroxide/Mg Hydroxide (Maalox Susp) 30 ml STK-MED ONCE .ROUTE 05/09/17 16:37 05/09/17 16:38 DC 05/09/17 16:39 30 ML Lidocaine HCl (Viscous Lidocaine 2% Soln) 20 ml STK-MED ONCE .ROUTE 05/09/17 16:37 05/09/17 16:38 DC 05/09/17 16:40 20 ML Medical Decision 22 yo F w/ h/o endometriosis presenting with intermittent epigastric pain , arriving afebrile, epigastric tenderness on exam. ddx; Differential diagnoses includes but is not limited to gastritis, peptic ulcer disease, GERD, gallbladder disease, pancreatitis, small bowel obstruction , a, irritable bowel disease, irritable bowel syndrome, appendicitis, urinary tract infection CBC: unremarkable UA: unremarkable Urine Preg test: negative Abdominal XR: no evidence of bowel obstruction, no free air U/S Gall bladder: unremarkable Lipase:negative Given GI cocktail x 1 Upon reevaluation, the patient is feeling better following GI cocktail. Given normal vital signs, unremarkable lab work and abdominal U/S as above, Abdominal XR findings suggestive of excess stool in colon, decision was made to place patient on stool softener (Senakot) on discharge. As epigastric pain could indicated underlying GERD vs Gastritis, decision was made to place patient on Zantac, Prilosec on discharge with close follow up by PCP. I discussed the findings and the treatment plan with the patient. Patient expresses agreement and understanding. Patient was discharged home with follow up to [facility] Medication Reconcilliation Current Medication List: was personally reviewed by me Impression Primary Impression: Epigastric abdominal pain Departure Information Condition GOOD Prescriptions Omeprazole (PRILOSEC) 20 Mg Capcr 20 MG PO DAILY for 30 Days, #30 CAP Prov: Maulik See MD 05/09/17 Ranitidine (Zantac) 150 Mg Tab 150 MG PO BID for 14 Days, #28 TAB Prov: Maulik See MD 05/09/17 Sennosides-Docusate Sodium (SENOKOT S) 1 Tab Tab 1 TAB PO BID for Constipation for 15 Days, #30 TAB Prov: Maulik See MD 05/09/17 Referrals No Doctor, Assigned (PCP) Patient Instructions My [facility] Resident Tracking Resident Involvement: Resident Care Provided Care Provided: Adult ED
[2017-05-09 16:49] LABS: ALBUMIN 3.6 gm/dl (3.4-5.0); CALCIUM 8.9 mg/dl (8.5-10.1); CREATININE 0.99 mg/dl (0.60-1.20); POTASSIUM 3.9 mmol/L (3.5-5.1)
[2017-05-09 16:52] LABS: TOTAL PROTEIN 7.3 gm/dl (6.4-8.2)
--- NOTE | 2017-05-09 17:21 | DIAGNOSTIC IMAGING REPORT ---
ABDOMEN 2VIEW W/PA CHEST RTN CLINICAL HISTORY: Abdominal pain, nausea, vomiting. COMPARISON STUDY: Chest x-ray dated 04/19/2016 FINDINGS: The erect chest reveals no evidence of free air. There is no evidence of focal pulmonary consolidation.] Erect and supine views of the abdomen reveal no abnormally dilated loops of large or small bowel. There are no transition zone to indicate bowel obstruction. IMPRESSION: No evidence of bowel obstruction. No evidence of free air. Electronically signed by: Erasmo Romo M.D. 05/09/2017 5:20 PM Dictated Date/Time: 05/09/2017 5:19 PM
--- NOTE | 2017-05-09 17:58 | DIAGNOSTIC IMAGING REPORT ---
ULTRASOUND RIGHT UPPER QUADRANT ABDOMEN CLINICAL HISTORY: Epigastric and right upper quadrant abdominal pain. COMPARISON STUDY: Abdominal radiographs dated 05/09/2017. TECHNIQUE: Real-time, grayscale, and color flow sonography of the right upper quadrant of the abdomen was performed. Images are reviewed in the transverse and longitudinal planes. FINDINGS: Liver: The liver is normal in size and echotexture. There is no intrahepatic biliary ductal dilatation. The main portal vein is patent. Gallbladder: The gallbladder is contracted and otherwise normal in appearance. No gallstones are identified. There is no gallbladder wall thickening or pericholecystic fluid. A sonographic Cote's sign is reportedly absent. The common bile duct measures up to 0.5 cm in diameter. Pancreas: Visualized portions of the pancreatic head and body are normal in appearance. The splenic vein is patent. Right kidney: Survey images of the right kidney demonstrate normal size and echotexture. There is no hydronephrosis. Ascites: None. IMPRESSION: Unremarkable sonographic assessment of the right upper quadrant. No gallstones are identified. Electronically signed by: Michele Najera M.D. 05/09/2017 5:56 PM Dictated Date/Time: 05/09/2017 5:55 PM
[2017-05-09 18:35] VITALS: BP 108/68; PULSE 80; O2SAT 100
[2017-05-09] MEDS ORDERED: ZNTT/150 PO (18:37)
[2017-05-09] MEDS ORDERED: SENN-65 PO (18:37)
[2017-05-09] MEDS ORDERED: PRLSR20 PO (18:37)
== END 2017-05-09 18:57 | disposition home or self-care (01) ==
LOC: C.EDB 15:20
DX: R10.13 Epigastric pain (principal); Z79.3 Long term (current) use of hormonal contraceptives

== ENCOUNTER 2017-05-19 09:25 | Day surgery (SDC) | payer OTHER ==
[2017-05-17 12:02] VITALS: Ht 165.1 cm; Wt 68.2 kg
[2017-05-18 16:41] LABS: BASO % 0.1 %; BASO ABS # 0.01 K/uL (0-0.2); EOS % 0.5 %; EOS ABS # 0.04 K/uL (0-0.5); HEMATOCRIT 41.7 % (37-47); HEMOGLOBIN 14.2 g/dL (12.0-16.0); IG# 0.01 K/uL (0.00-0.02); LYMPH ABS # 1.83 K/uL (1.2-3.4); MEAN CELL VOLUME 92.1 fL (80-100); MEAN CORPUSCULAR HEMOGLOBIN 31.3 pg (25-34); MEAN CORPUSCULAR HGB CONC 34.1 g/dl (32-36); MEAN PLATELET VOLUME 9.6 fL (7.4-10.4); MONO % 8.9 %; MONO ABS # 0.65 K/uL (0.11-0.59); NEUT % 65.4 %; NEUT ABS # 4.79 K/uL (1.4-6.5); PLATELET COUNT 286 K/uL (130-400); RED CELL DISTRIBUTION WIDTH CV 13.2 % (11.5-14.5); RED CELL DISTRIBUTION WIDTH SD 44.8 fL (36.4-46.3); WHITE BLOOD COUNT 7.33 K/uL (4.8-10.8)
--- NOTE | 2017-05-18 17:25 | HISTORY & PHYSICAL EXAMINATION ---
DATE OF ADMISSION: 05/19/2017 ADMITTING DIAGNOSES: 1. Female pelvic pain. 2. Dysmenorrhea. 3. Dyspareunia. ADMISSION HISTORY: The patient is a 22-year-old 0 on oral contraceptive pills, who is admitted for diagnostic/possible operative laparoscopy for pelvic pain, dyspareunia and dysmenorrhea. The patient states her symptoms began in January of last year, have progressively increased in intensity. She has pain all the time and pain with intercourse. In January she was seen in the Emergency Room and was diagnosed with an ovarian cyst here in [place]. She followed up with her product safety coordinator in [place] who repeated the ultrasound and showed the cyst had resolved, but the product safety coordinator raised the possibility of endometriosis and gynecological followup was recommended. The patient is going to school here and she presented for evaluation. The patient states her symptoms have slowly progressed but became critical on January. She was started on oral contraceptive pills 3 years ago for contraception; prior to that her periods were tolerable. The patient does have some nausea but no diarrhea or constipation with her menses. The patient was seen in the office, treatment options were discussed and the patient has opted for diagnostic/operative laparoscopy. OBSTETRICAL: None. DOCUMENT PREPARATION SPECIALIST: As above. MEDICAL: None. SURGICAL: [place] teeth extraction. ALLERGIES: AMOXICILLIN AND MONISTAT. SOCIAL HISTORY: No smoking. FAMILY HISTORY: Noncontributory. REVIEW OF SYSTEMS: As per HPI. ADMISSION PHYSICAL EXAMINATION: GENERAL: Shows a pleasant female in no acute distress. VITAL SIGNS: Blood pressure 114/62, height of 5 feet 5 inches and weight of 146 pounds. HEENT EXAMINATION: Unremarkable. NECK: Supple. LUNGS: Clear. HEART: With a regular rhythm and rate. ABDOMEN: Soft, nontender. PELVIC: Shows normal external genitalia. The vaginal vault is pink and rugated. Cervical os is nulliparous and closed. Bimanual examination shows an anterior mobile uterus. Adnexa show no palpable masses. RECTAL: Confirmatory. EXTREMITIES: Shows no deep calf tenderness. NEUROLOGIC: Grossly intact. IMPRESSION: A 22-year-old 0, chronic pelvic pain, dysmenorrhea, dyspareunia, on oral contraceptive pills for diagnostic/operative laparoscopy. PLAN: The risks, benefits and alternatives to the surgery have been discussed. While the benefits will be evaluation of the pelvis including any possible ablation or removal of endometriotic implants, the risks are bleeding, infection, inadvertent injury to bowel or bladder, or failure to diagnose and/or treat the problem. The patient understands this. The permit has been signed and she wishes to proceed.
[~2017-05-19] VITALS: Ht 165.1 cm; Wt 68.2 kg
[~2017-05-19 09:25] MED LIST changes: +ACETAMINOPHEN 1000 MG/100 ML IV IV ONE; -ASCO500T3 PO; +ATROPINE SULFATE 0.1 MG/ML 5ML SYR IV PRN; +EpHEDrine SULFATE INJ 50 MG/ML AMP IV PRN; +HYDROmorphone INJ 1 MG/ML SYR IV PRN; +LACTATED RINGER'S 1000ML 500 ML IV SCH; +ONDANSETRON INJ 2 MG/ML 2 ML VIAL IV PRN; +PHENYLEPHRINE 100MCG/ML 5ML SYR IV PRN; +PRLSR20 PO; +PROMETHAZINE HCL INJ 12.5 MG in SODIUM CHLORIDE 0.9% 50ML 50 ML IV PRN; +SENN-65 PO; -TYLOTC500 PO; +ZNTT/150 PO; +[UNRECOGNIZED DRUG - CODE] PO
[2017-05-19 09:53] VITALS: BP 122/73; PULSE 66; TEMP 36.7; O2SAT 99
[2017-05-19] MEDS: LACTATED RINGER'S 1000ML 1,000 ML IV SCH ×2 (10:10→12:26)
--- NOTE | 2017-05-19 12:23 | History & Physical Bridge Note ---
H&P Re-Evaluation Bridge Note: I have examined the patient, reviewed the History & Physical and in the interval since the performance of the History & Physical I have noted the following changes of clinical significance: No changes noted
[2017-05-19] MEDS ORDERED: ROCURONIUM BROMIDE 10 MG/ML 5 ML VIAL IV ONE (12:50)
[2017-05-19] MEDS ORDERED: PROPOFOL IV EMULSION 10 MG/ML 20 ML VIAL IV ONE (12:50)
[2017-05-19] MEDS ORDERED: LIDOCAINE HCL 2% 2 ML VIAL (20MG/ML) ONE (12:50)
[2017-05-19] MEDS ORDERED: MIDAZOLAM HCL 1 MG/ML 2ML VIAL ONE (12:51)
[2017-05-19] MEDS ORDERED: FENTANYL CITRATE INJ 50 MCG/1 ML 2 ML VIAL ONE ×2 (12:51→14:33)
[2017-05-19] MEDS ORDERED: BUPIVACAINE 0.5 % 5 MG/1 ML MPF 30ML VIAL ONE (12:53)
[2017-05-19] MEDS ORDERED: KETOROLAC TROMETHAMINE 30 MG/ML VIAL ONE (14:08)
[2017-05-19] MEDS ORDERED: DEXAMETHASONE SOD INJ 4 MG/ML VIAL ONE (14:08)
[2017-05-19] MEDS ORDERED: ONDANSETRON INJ 2 MG/ML 2 ML VIAL ONE (14:08)
[2017-05-19] MEDS ORDERED: NEOSTIGMINE METHYLSULFATE 5 MG/5 ML SYR ONE (14:08)
[2017-05-19] MEDS ORDERED: GLYCOPYRROLATE INJ 0.2 MG/ML VIAL ONE (14:08)
--- NOTE | 2017-05-19 14:21 | [facility] Post Operative Brief Note ---
Immediate Operative Summary Operative Date May 19, 2017. Pre-Operative Diagnosis 1) Pelvic Pain 2) Dysmenorrhea 3) Dyspareunia Post-Operative Diagnosis 1) Same 2) Minimal pelvic endometriosis Procedure(s) Performed 1) Diagnostic Laproscopy 2) Fulguration of Endometriotic implant 3) Aspiration of cul-de-sac cysts Surgeon Wilfred Inside Plant Supervisor Surgeon(s) None Estimated Blood Loss 10 Findings See Below (Normal appearing uterus tubes and ovaries. Small implant of endometriosis in cul-de-sac ablated with harmonic scapel. Cul-de-sac cysts aspirated and sent for pathology) see below Fluids (cc crystalloids) 1000 Specimens Cul-de-sac cysts Drains None Anesthesia Type General Complication(s) none Disposition Accompanied Pt To Recover: no Disposition: Recovery Room / PACU
[2017-05-19] MEDS ORDERED: SODIUM CHLORIDE 0.9% 1000ML 1,000 ML IV SCH (14:26)
[2017-05-19] MEDS ORDERED: KETOROLAC TROMETHAMINE 30 MG/ML VIAL IV. PRN (14:30)
[2017-05-19] MEDS ORDERED: IBUPROFEN 600 MG TAB PO PRN (14:30)
[2017-05-19] MEDS ORDERED: ONDANSETRON INJ 2 MG/ML 2 ML VIAL IV PRN (14:30)
[2017-05-19] MEDS ORDERED: OXYCODONE/ACETAMINOPHEN 5-325 TAB PO PRN ×2 (14:30)
[2017-05-19] MEDS ORDERED: OXYC-57 PO (14:31)
--- NOTE | 2017-05-19 14:32 | Discharge Instructions-SurgCtr ---
Discharge Instructions Date of Service May 19, 2017. Visit Reason for Visit: Pelvic Pain, Dysmenorrhea Discharge Discharge Diagnosis / Problem: same Discharge Goals Goal(s): Therapeutic intervention Activity Recommendations Activity Limitations: as noted below Anesthesia . Post Anesthesia Instructions: If you have had General Anesthesia or IV Sedation: * Do not drive today. * Resume driving when surgeon permits. * Do not make important decisions or sign legal documents today. * Call surgeon for: 1. Temperature elevations greater than 101 degrees F. 2. Uncontrollable pain. 3. Excessive bleeding. 4. Persistent nausea and vomiting. 5. Medication intolerance (nausea, vomiting or rash). * For nausea and vomiting use only clear liquids such as: tea, soda, bouillon until nausea subsides, then gradually increase diet as tolerated. * If you have any concerns or questions, call your surgeon's office. If physician is unavailable and it is an emergency, call 911 or go to the nearest emergency room. . Instructions / Follow-Up Instructions / Follow-Up ACTIVITY RECOMMENDATIONS: * Rest the first 2-3 days. You should be back to your normal activity levels by day 3. * No heavy lifting for 2 weeks. * No intercourse, tampons or douching for 1-2 weeks. * You may shower the next day. * Do not drive anytime that you are taking narcotic pain medicines. RETURN TO SCHOOL/WORK: * May return to school or work after 2-3 days. DIET: Nausea may occur in the immediate post-operative period. If so, take clear liquids such as tea, bouillon, apple juice until all nausea has subsided, then resume usual diet. MEDICATIONS: Resume previous medications unless instructed otherwise by your surgeon. Ibuprofen 200mg 2-3 tablets every 4-6 hours as needed -- OR -- Aleve 2 tablets every 8-12 hours as needed for post-operative discomfort Medications are over the counter. Tylenol may be used if above medications are contraindicated or not preferred. Medication should be taken with food or milk. Do not take on an empty stomach. SPECIAL CARE INSTRUCTIONS: * Check temperature twice daily for one week. report any elevation over 101 degrees. * You may experience some vagina spotting and/or bleeding. This is normal for 1 -2 weeks and should not be heavier than a normal period. If it is unusual in amount, call your physician. * Post-operative discomfort may consist of a sore throat, a "bloated" feeling and pain in the shoulders. these are normal symptoms, which usually only last for 2-3 days. * Remove band-aids tomorrow and shower. There is no need to replace band-aids unless there is drainage or discomfort. FOLLOW UP VISIT: Call your doctor's office for a post-operative 2 week visit if not already scheduled. Diet Recommendations Home Diet: resume previous diet Procedures Procedures Performed: 1) Diagnostic Laproscopy 2) Fulguration of Endometriotic implant 3) Aspiration of cul-de-sac cysts Pending Studies Studies pending at discharge: yes List of pending studies: Pathology Medical Emergencies . Who to Call and When: Medical Emergencies: If at any time you feel your situation is an emergency, please call 911 immediately. . Non-Emergent Contact Non-Emergency issues call your: Elementary Substitute Teacher Call Non-Emergent contact if: you have a fever, temperature is above 100.5, wound has increased drainage, wound has increased redness . . "Provider Documentation" section prepared by Johnny Hardin. . [place] Drug Monitoring Program Search Results: patient reviewed within database, no issues identified
[2017-05-19] MEDS: FENTANYL CITRATE INJ 50 MCG/1 ML 2 ML VIAL IV PRN ×3 (14:33→14:43)
[2017-05-19] MEDS ORDERED: HYDROmorphone INJ 1 MG/ML SYR ONE (14:33)
--- NOTE | 2017-05-19 15:02 | Anesthesiology Progress Note ---
Anesthesia Post Op Note Date & Time May 19, 2017 at 15:01 Vital Signs Pain Intensity: 4 Vital Signs Past 12 Hours Date Time Temp Pulse Resp B/P (MAP) Pulse Ox O2 Delivery O2 Flow Rate FiO2 05/19/17 14:50 62 12 133/72 100 Oxymask 10 05/19/17 14:40 61 12 129/71 100 Oxymask 10 05/19/17 14:31 36.5 76 17 131/73 100 Oxymask 10 05/19/17 09:53 36.7 66 18 122/73 (89) 99 Room Air Notes Mental Status: alert / awake / arousable, participated in evaluation Pt Amnestic to Procedure: Yes Nausea / Vomiting: adequately controlled Pain: adequately controlled Airway Patency, RR, SpO2: stable & adequate BP & HR: stable & adequate Hydration State: stable & adequate Anesthetic Complications: no major complications apparent
[2017-05-19 15:24] VITALS: BP 109/61; PULSE 59; TEMP 36.9; O2SAT 100
[2017-05-19 15:54] VITALS: BP 112/66; PULSE 57; O2SAT 100
--- NOTE | 2017-05-19 18:26 | OPERATIVE REPORT ---
DATE OF OPERATION: 05/19/2017 PREOPERATIVE DIAGNOSES: 1. Dysmenorrhea. 2. Pelvic pain. 3. Dyspareunia. POSTOPERATIVE DIAGNOSES: 1. Same. 2. Minimal pelvic endometriosis. PROCEDURE PERFORMED: 1. Diagnostic laparoscopy. 2. Fulguration of endometriotic implant. 3. Aspiration of cul-de-sac cyst. SURGEON: Dr. Hardin. ANESTHESIA: General. FINDINGS: Laparoscopic examination of the pelvis showed normal appearing uterus, tubes and ovaries bilaterally, normal appearing appendix and liver edge. Small implant of cul-de-sac noted and ablated using the Harmonic scalpel. Incidental removal of 2 cul-de-sac cysts. PROCEDURE IN DETAIL: The patient was taken to the operating room, and after general anesthesia, was placed in a dorsolithotomy position and draped and prepped in usual fashion. [place] catheter was inserted into the bladder which remained there throughout the procedure. Single tooth tenaculum was used to grasp the anterior lip of the cervix. [place] cannula was inserted into the cervical os and fastened to the tenaculum. Small subumbilical incision was made and a Veress needle was introduced into the pelvic cavity which was then insufflated with 3 liters of CO2. Veress needle was removed and a sharp trocar was used to introduce the laparoscope. Pelvic organs were visualized, and then under direct laparoscopic guidance, a 5 mm suprapubic trocar was placed. Pelvic organs again visualized with the description as above. Through the suprapubic trocar, a 5 mm Harmonic scalpel was placed. The endometriotic implant in the cul-de-sac was grasped, and on minimal power, the endometriotic implant was burnt. The cul-de-sac cysts were then aspirated and sent for pathological evaluation. Hemostasis present. CO2 was allowed to escape from the cavity. The trocars were removed under direct laparoscopic guidance. The fascia was closed in the umbilical incision with interrupted [id number] Vicryl sutures. Skin incisions were closed with 4-0 Monocryl suture. Sterile dressing applied. The patient taken to the recovery room in satisfactory condition. I attest to the content of the Intraoperative Record and any orders documented therein. Any exception s are noted below.
[2017-05-19] MEDS ORDERED: DOCUSATE SODIUM/SENNA 50/8.6MG TAB PO SCH (21:00)
[2017-05-19] MEDS ORDERED: RANITIDINE HCL 150 MG TAB PO SCH (21:00)
== END 2017-05-19 16:35 | disposition home or self-care (01) ==
LOC: C.ACU 09:25
PROVIDERS: ATTEND Obstetrics & Gynecology
DX: N94.6 Dysmenorrhea, unspecified (principal); R10.2 Pelvic and perineal pain; N94.10 Unspecified dyspareunia; Z83.3 Family history of diabetes mellitus; Z88.1 Allergy status to other antibiotic agents; Z88.8 Allergy status to other drugs, medicaments and biological substances

== ENCOUNTER → 2017-06-05 | Outpatient (CLI) | payer OTHER ==
[~2017-06-05] MED LIST changes: -ACETAMINOPHEN 1000 MG/100 ML IV IV ONE; -ATROPINE SULFATE 0.1 MG/ML 5ML SYR IV PRN; -EpHEDrine SULFATE INJ 50 MG/ML AMP IV PRN; -HYDROmorphone INJ 1 MG/ML SYR IV PRN; -LACTATED RINGER'S 1000ML 500 ML IV SCH; -ONDANSETRON INJ 2 MG/ML 2 ML VIAL IV PRN; +OXYC-57 PO; -PHENYLEPHRINE 100MCG/ML 5ML SYR IV PRN; -PROMETHAZINE HCL INJ 12.5 MG in SODIUM CHLORIDE 0.9% 50ML 50 ML IV PRN; +RANI150T85 PO; -ZNTT/150 PO
== END | disposition home or self-care (01) ==
LOC: C.LABSPEC 17:43
PROVIDERS: ATTEND Obstetrics & Gynecology
DX: R39.9 Unspecified symptoms and signs involving the genitourinary system (principal)